=== PATIENT | male | born 2000 | race Caucasian/White ===

== ENCOUNTER 2018-04-03 10:51 | Emergency (ER) | payer MEDICAID, SELFPAY ==
[2018-04-03 10:53] VITALS: BP 127/61; PULSE 80; RESP 14; TEMP 36.8; O2SAT 97; BMI 29.2
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
== END 2018-04-03 11:32 | disposition home or self-care (01) ==
PROVIDERS: Emergency Provider Emergency Medicine; Family Provider Pediatrics; PCP Pediatrics
DX: S00.03XA Contusion of scalp, initial encounter (principal); Y04.2XXA Assault by strike against or bumped into by another person, initial encounter; Y93.9 Activity, unspecified; Y92.9 Unspecified place or not applicable; Y99.9 Unspecified external cause status; Z79.899 Other long term (current) drug therapy
CPT/HCPCS: 99283

== ENCOUNTER 2018-05-02 11:22 | Emergency (ER) | payer MEDICAID, SELFPAY ==
[2018-05-02] VITALS (9 sets, daily range): BP systolic 134–142; BP diastolic 60–68; PULSE 55–85; RESP 14–18; TEMP 36.9; O2SAT 97–99; BMI 30.2
--- NOTE | 2018-05-02 11:57 | ED.DCSUM_ITS ---
- ER Visit Summary Date of Service: 05/02/18 Chief Complaint: Suicidal thoughts History of Present Illness: The patient is a 17 M with history of bipolar disorder who is a resident at the [facility] presents with increasing suicidal thoughts. Patient states she has been very depressed lately. He states he has been having intrusive thoughts of self-harm. He states that he does have plan to cut himself. He actually did attempt to cut his right wrist today superficially. He states he was not sure if he was actually trying to harm himself or if it was just to relieve stress. He states he has been depressed before, but denies any prior suicide attempt. Physical Examination: Vital signs reviewed General: Well-nourished, well-developed Head: Normocephalic, atraumatic Eyes: Pupils equal and reactive, extraocular muscles intact Neck, supple, no lymphadenopathy Heart: Regular rate and rhythm Respiratory: No distress, clear bilaterally Abdomen: Soft, nontender, nondistended, no peritoneal signs Back: Nontender Extremities: Nontender, no edema, no cords, superficial abrasions on right arm. Normal pulses. Skin: Normal color no rash Neuro: Alert and oriented, no focal or lateralizing deficits Test Results: [] Emergency Department Course and Treatment: Patient was medically cleared. He will be evaluated by the crisis counselor. Disposition is pending completion of psychiatric evaluation. Treatment Plan: [] Disposition: Pending Impression: Depression This note was generated with [employer] dictation software. It may contain incorrect words, spelling, and punctuation that were not noted in review of the chart prior to signing ED Disposition - Plan for ED Patient: Chief Complaint: Suicidal Referrals: Boyd August MD [Primary Care Provider] -
[2018-05-02 12:11] LABS: Absolute Lymphocyte Count 1.94 X10^3/ul (0.83-4.51); Absolute Neutrophil Count 5.5 X10^3/uL (2.0-7.7); Basophil# 0.02 X10^3/uL; Basophil% 0.2 % (0-1); Eosinophil# 0.16 X10^3/uL; Hematocrit 46.5 % (40-54); Lymphocyte # 1.94 X10^3/ul (4.0); Lymphocyte % 23.7 % (19-41); Mean Corp Hgb Conc 32.3 g/gl (32-36); Mean Corpuscular Hgb 28.1 pg (27.0-32.0); Mean Corpuscular Volume 87.1 fL (80-94); Mean Platelet Vol. 9.1 fl (6.2-12.0); Monocyte# 0.55 X10^3/uL; Monocyte% 6.7 % (0-10); Neutrophil # 5.52 X10^3/uL (2.7-7.7); Neutrophil % 67.4 % (47-70); Platelet Count 254 K/mm3 (150-450); RBC Distribution Width CV 13.6 % (11.6-14.6); RBC Distribution Width SD 43.1 fl (35.1-43.9); Red Blood Count 5.34 M/mm3 (4.6-6.2); White Blood Count 8.2 K/mm3 (4.4-11.0)
[2018-05-02 12:12] LABS: POSITIVE COUNT NO; POSITIVE DIFFERENTIAL NO; POSITIVE MORPHOLOGY NO
[2018-05-02 12:15] LABS: Amphetamine Urine VISTA NEGATIVE (<1000 ng/mL); Barbiturate Urine VISTA NEGATIVE (< 200 ng/mL); Benzodiazepine Urine VISTA NEGATIVE (< 200 ng/mL); Cocaine Urine VISTA NEGATIVE (< 300 ng/mL); Ecstacy Urine VISTA NEGATIVE (< 500 ng/mL); Methadone Urine VISTA NEGATIVE (< 300 ng/mL); PCP Urine VISTA NEGATIVE (< 25 ng/mL); THC Urine VISTA NEGATIVE (< 50 ng/mL); Vista UDS pH Range 6
[2018-05-02 12:24] LABS: Anion Gap 5 (5-15); BUN 13 mg/dL (7-18); BUN/Creat Ratio 14.9 RATIO (10-20); Calcium,Total 9.2 mg/dL (8.5-10.1); Chloride 105 mmol/L (98-107); Creatinine, Serum 0.87 mg/dL (0.70-1.30); EST Glomerular Filtration Rate 119 mL/min (>60); Est Glom Filt Rate - Afr Amer 144 mL/min (>60); Estimated Creatinine Clearance 158.78 ml/min; Glucose 87 mg/dL (74-106); Potassium 3.8 mmol/L (3.5-5.1); Sodium Level 140 mmol/L (136-145)
[2018-05-02 12:26] LABS: Alcohol, Blood (Medical)-Serum < 3.0 mg/dL
--- NOTE | 2018-05-02 12:34 | ED.RN ---
counseling center made aware of pt in er. renal social worker at lunch, will be made aware of pt when they return
[2018-05-03] VITALS (15 sets, daily range): BP systolic 124–163; BP diastolic 61–87; PULSE 60–81; RESP 16–20; O2SAT 97–100
--- NOTE | 2018-05-03 11:20 | NURSING ---
PER HEIDI WITH [facility]; THEY ARE NOW TRYING TO GET THE PT ACCEPTED TO [facility]
--- NOTE | 2018-05-03 14:17 | ED.RN ---
CELSO GORDON WITH [facility]IS; HE IS WORKING ON HAVING PT ACCEPTED TO [facility]
--- NOTE | 2018-05-03 17:41 | EKGRS_ITS ---
Test Reason : MEDICAL CLEARANCE Blood Pressure : / mmHG Vent. Rate : 070 BPM Atrial Rate : 070 BPM P-R Int : 160 ms QRS Dur : 116 ms QT Int : 370 ms P-R-T Axes : 024 034 027 degrees QTc Int : 399 ms Normal sinus rhythm Normal ECG Confirmed by ROHAN LESLIE, RAMONA ([id number]), content editor DAIN GURROLA ([id number] on 05/10/2018 1:15:53 PM Referred By: Confirmed By:RAMONA MADRIGAL MD
[2018-05-03 18:22] LABS: AST(SGOT) 27 U/L (15-37); Alanine Aminotransfer ALT/SGPT 38 U/L (16-61); Albumin, Serum 4.5 g/dL (3.2-5.0); Alkaline Phosphatase 116 U/L (45-117); Bilirubin, Direct 0.11 mg/dL (0.00-0.30); Globulin 3.7 g/dL (2.2-4.2); Protein, Total 8.2 g/dL (6.4-8.2)
--- NOTE | 2018-05-03 18:43 | NURSING ---
FAXED LIVER PROFILE AND EKG TO [facility] PER [facility] REQUEST.
[2018-05-04] VITALS (15 sets, daily range): BP systolic 125–161; BP diastolic 69–75; PULSE 68–80; RESP 13–18; O2SAT 97–99
--- NOTE | 2018-05-04 06:57 | NURSING ---
CALLING [facility] FOR UPDATE
--- NOTE | 2018-05-04 07:53 | ED.RN ---
GERSON FROM [facility] CALLS. PT IS ACCEPTED AT [facility] BUT HAS MULTIPLE PEOPLE AHEAD OF HIM. UNSURE OF TIMELINE FOR TRANSFER. POSSIBLY PT WILL NEED TO REMAIN IN THE ED TIL SUNDAY
--- NOTE | 2018-05-04 09:34 | NURSING ---
PATIENT ON WAITING LIST AT [facility].
--- NOTE | 2018-05-04 15:35 | NURSING ---
PATIENT IN ROOM WATCHING TV WITH WORKER AT BEDSIDE. PT IS CURRENTLY COOPERATIVE.
--- NOTE | 2018-05-04 16:38 | ED.RN ---
patient washing up wound at bedside with worker nearby. pt requesting to take a shower.
--- NOTE | 2018-05-04 18:25 | ED.RN ---
patient is resting in room with no c/o. worker continues to stay at bedside. pt continues to wait for bed at [facility]
[2018-05-05] VITALS (22 sets, daily range): BP systolic 122–153; BP diastolic 61–76; PULSE 68–85; RESP 14–18; O2SAT 97–99
--- NOTE | 2018-05-05 10:08 | NURSING ---
ADAMA NIETO, CALLED AND GAVE AN UPDATE. IF THERE IS A PRIVATE ROOM OPEN UP AT [facility], HE WILL GET IT. IF NOT, HE WILL BE HERE TIL TOMORROW
[2018-05-05] MEDS: ARIPiprazole 5 MG Tablet 15 MG PO (10:15)
--- NOTE | 2018-05-05 14:28 | ED.RN ---
PT UP IN THE ROOM ACTING APPROPRIATELY LISTENING TO MUSIC. SITTER IN THE ROOM WITH PATIENT.
--- NOTE | 2018-05-05 15:58 | ED.RN ---
PT ORDERING SUPPER, WATCHING TV, STABLE, SSITTER IS WITH THE PT IN ROOM.
[2018-05-06] VITALS (21 sets, daily range): BP systolic 90–153; BP diastolic 47–91; PULSE 54–82; RESP 14–20; O2SAT 98–100
--- NOTE | 2018-05-06 10:10 | ED.RN ---
CALLED PHARMACY REGARDING ABIMICHAELY.
[2018-05-06] MEDS: ARIPiprazole 5 MG Tablet 15 MG PO (10:24)
--- NOTE | 2018-05-06 12:57 | ED.RN ---
GEORGE WITH [facility] THERE IS DEFINITELY NOT GOING TO BE ANY BEDS AVAILABLE TODAY.
--- NOTE | 2018-05-06 17:54 | ED.RN ---
JIHAN FROM [facility] CALLED TO UPDATE US ON A BED FOR PATIENT. HE IS FIRST ON THE LIST TOMORROW FOR A MALE BED.
[2018-05-07] VITALS (8 sets, daily range): BP systolic 155; BP diastolic 72–88; PULSE 74–87; RESP 13–16; O2SAT 96–100
--- NOTE | 2018-05-07 08:42 | ED.RN ---
pt given shower and teeth brushed
--- NOTE | 2018-05-07 09:35 | ED.RN ---
GERSON WITH [facility]; CALLING [facility] TO SEE WHERE WE ARE WITH THE PTS BED
[2018-05-07] MEDS: ARIPiprazole 5 MG Tablet 15 MG PO (09:44)
--- NOTE | 2018-05-07 11:00 | ED.RN ---
PER GERSON WITH CRISIS; SHE SPOKE WITH FABRICIO THE CNO AT [facility] AND FABRICIO STATED PT SHOULD HAVE A ROOM THIS AFTERNOON
--- NOTE | 2018-05-07 13:35 | ED.RN ---
c2 bed at [facility]
== END 2018-05-07 15:31 ==
PROVIDERS: Emergency Provider Emergency Medicine; Family Provider Pediatrics; PCP Pediatrics
DX: F31.9 Bipolar disorder, unspecified (principal); R45.851 Suicidal ideations; S40.811A Abrasion of right upper arm, initial encounter; X78.9XXA Intentional self-harm by unspecified sharp object, initial encounter; Y93.9 Activity, unspecified; Y92.9 Unspecified place or not applicable; Y99.9 Unspecified external cause status; Z79.899 Other long term (current) drug therapy; Z87.891 Personal history of nicotine dependence
CPT/HCPCS: 80048; 80076; 80307; 80320; 85025; 93005; 99284; G0480

== ENCOUNTER 2018-05-24 23:31 | Emergency (ER) | payer MEDICAID, SELFPAY ==
[2018-05-24 23:32] VITALS: BP 142/82; PULSE 67; RESP 15; TEMP 36.9; O2SAT 99; BMI 30.7
--- NOTE | 2018-05-24 23:57 | ED.VIS.GEN ---
History of Present Illness Informant: Patient Onset: Weeks - 2 Context: Gradual Onset Timing: Continuous Current Severity: Severe Maximum Severity: Severe Narrative: For the past 2 weeks or so, patient has been having fleeting thoughts of suicide, he states this has been contested by thoughts of cutting himself to relieve the stress and not killing himself. Tonight, he finally did this by cutting himself on the left forearm, again he states his intention was not to kill himself, but rather to relieve stress. He has not had a suicidal plan. He has been feeling this way because his ex-girlfriend killed herself in front of him about 5 years ago, and this is around the time of her birthday. He is at [facility]. He sees a counselor there periodically. When there was no use of him cutting his forearm about 3 hours ago, he was sent for further evaluation. Last tetanus is unknown. He denies any recent illnesses, other injuries, or other physical symptoms. No hallucinations or voices. Has been compliant with his medications. <Constantin Garcia - Last Filed: 05/24/18 23:57> <Mart Rowland - Last Filed: 05/25/18 04:18> Chief Complaint: Suicidal - Past Medical History (1) Bipolar disorder Status: Chronic (2) Mood disorder Status: Chronic <Constantin Garcia - Last Filed: 05/24/18 23:57> Past Medical History Smoking Status: Current some day smoker Alcohol: None Drugs: None <Constantin Garcia - Last Filed: 05/24/18 23:57> <Mart Rowland - Last Filed: 05/25/18 04:18> - Allergies and Home Meds Allergies/Adverse Reactions: Allergies No Known Allergies Allergy (Verified 05/25/18 01:50) Primary Care Physician: [facility] [GROUP OF PHYSICIANS] - Review of Systems All systems negative except as indicated Psych: Reports: Depression, Suicidal thoughts <Constantin Garcia - Last Filed: 05/24/18 23:57> Physical Exam Vital Signs/Narrative: Vital Signs Temp Pulse Resp BP Pulse Ox 05/24/18 23:32 98.4 F 67 15 142/82 H 99 Inital Vital Signs reviewed: Yes General: Well nourished, Well developed Head: Normocephalic, Atraumatic Eyes: Perrl, EOMI ENT: Moist mucous membranes, No rhinorrhea Neck: Supple, Nontender Cardiovascular: Regular rate, Regular rhythm, No murmurs Respiratory: No distress, CTA bilaterally, Chest nontender Abdomen: Soft, Nontender, Nondistended, Normal bowel sounds Back: Nontender, Normal Inspection Extremities: Nontender, No edema, - - Abrasions/lacerations left forearm. Full range of motion wrist and elbow and all other joints. Skin: Normal color, No rash, Trauma - Partial-thickness superficial abrasions ?3, parallel, left volar forearm, 1 of them is consistent with a laceration approximately 3 cm, but not in need of repair Neurological: Alert, Oriented x3, Cranial nerves II-XII grossly intact, Normal Strength, Normal Sensation Psychological: - - Anxious, standing, jittery, but very cooperative. Not intoxicated. <Constantin Garcia - Last Filed: 05/24/18 23:57> Vital Signs/Narrative: Vital Signs Resp 05/25/18 04:02 16 05/25/18 03:10 14 05/25/18 01:57 14 05/25/18 00:31 16 <Mart Rowland - Last Filed: 05/25/18 04:18> Diagnostic/Tx/Re-eval - Medical Decision Making Patient status will be updated. His lacerations/abrasions will be cleansed and dressed, I do not think they necessitate repair, they are very superficial. Labs along with drug screen and alcohol will be obtained, they will likely be unremarkable, and thus she will be medically cleared. Crisis will be called to evaluate further. Will be checked out to the oncoming emergency physician for final disposition. <Constantin Garcia - Last Filed: 05/24/18 23:57> - Medical Decision Making Patient was seen by [facility], he will be discharged back to his facility where he is closely monitored. At this time he is not suicidal does not want to hurt himself. The only reason he cut himself was to escape some of the pain. <Mart Rowland - Last Filed: 05/25/18 04:18> ED Disposition <Constantin Garcia - Last Filed: 05/24/18 23:57> <Mart Rowland - Last Filed: 05/25/18 04:18> - Plan for ED Patient: Chief Complaint: Suicidal Diagnosis: Suicidal thoughts Referrals: [facility] [GROUP OF PHYSICIANS] -
--- NOTE | 2018-05-25 00:02 | ED.DCSUM_ITS ---
History of Present Illness Informant: Patient Onset: Weeks - 2 Context: Gradual Onset Timing: Continuous Current Severity: Severe Maximum Severity: Severe Narrative: For the past 2 weeks or so, patient has been having fleeting thoughts of suicide , he states this has been contested by thoughts of cutting himself to relieve the stress and not killing himself. Tonight, he finally did this by cutting himself on the left forearm, again he states his intention was not to kill himself, but rather to relieve stress. He has not had a suicidal plan. He has been feeling this way because his ex-girlfriend killed herself in front of him about 5 years ago, and this is around the time of her birthday. He is at [employer]. He sees a counselor there periodically. When there was no use of him cutting his forearm about 3 hours ago, he was sent for further evaluation. Last tetanus is unknown. He denies any recent illnesses, other injuries, or other physical symptoms. No hallucinations or voices. Has been compliant with his medications. <Constantin Garcia - Last Filed: 05/24/18 23:57> <Mart Rowland - Last Filed: 05/25/18 04:18> Chief Complaint: Suicidal - Past Medical History (1) Bipolar disorder Status: Chronic (2) Mood disorder Status: Chronic <Constantin Garcia - Last Filed: 05/24/18 23:57> Past Medical History Smoking Status: Current some day smoker Alcohol: None Drugs: None <Constantin Garcia - Last Filed: 05/24/18 23:57> <Mart Rowland - Last Filed: 05/25/18 04:18> - Allergies and Home Meds Allergies/Adverse Reactions: Allergies No Known Allergies Allergy (Verified 05/25/18 01:50) Primary Care Physician: [facility] [GROUP [facility] PHYSICIANS] - Review of Systems All systems negative except as indicated Psych: Reports: Depression, Suicidal thoughts <Constantin Garcia - Last Filed: 05/24/18 23:57> Physical Exam Vital Signs/Narrative: Vital Signs Temp Pulse Resp BP Pulse Ox 05/24/18 23:32 98.4 F 67 15 142/82 H 99 Inital Vital Signs reviewed: Yes General: Well nourished, Well developed Head: Normocephalic, Atraumatic Eyes: Perrl, EOMI ENT: Moist mucous membranes, No rhinorrhea Neck: Supple, Nontender Cardiovascular: Regular rate, Regular rhythm, No murmurs Respiratory: No distress, CTA bilaterally, Chest nontender Abdomen: Soft, Nontender, Nondistended, Normal bowel sounds Back: Nontender, Normal Inspection Extremities: Nontender, No edema, - - Abrasions/lacerations left forearm. Full range of motion wrist and elbow and all other joints. Skin: Normal color, No rash, Trauma - Partial-thickness superficial abrasions ?3 , parallel, left volar forearm, 1 of them is consistent with a laceration approximately 3 cm, but not in need of repair Neurological: Alert, Oriented x3, Cranial nerves II-XII grossly intact, Normal Strength, Normal Sensation Psychological: - - Anxious, standing, jittery, but very cooperative. Not intoxicated. <Constantin Garcia - Last Filed: 05/24/18 23:57> Vital Signs/Narrative: Vital Signs Resp 05/25/18 04:02 16 05/25/18 03:10 14 05/25/18 01:57 14 05/25/18 00:31 16 <Mart Rowland - Last Filed: 05/25/18 04:18> Diagnostic/Tx/Re-eval - Medical Decision Making Patient status will be updated. His lacerations/abrasions will be cleansed and dressed, I do not think they necessitate repair, they are very superficial. Labs along with drug screen and alcohol will be obtained, they will likely be unremarkable, and thus she will be medically cleared. Crisis will be called to evaluate further. Will be checked out to the oncoming emergency physician for final disposition. <Cnostantin Garcia - Last Filed: 05/24/18 23:57> - Medical Decision Making Patient was seen by [facility], he will be discharged back to his facility where he is closely monitored. At this time he is not suicidal does not want to hurt himself. The only reason he cut himself was to escape some of the pain. <Mart Rowland - Last Filed: 05/25/18 04:18> ED Disposition <Constantin Garcia - Last Filed: 05/24/18 23:57> <Mart Rowland - Last Filed: 05/25/18 04:18> - Plan for ED Patient: Chief Complaint: Suicidal Diagnosis: Suicidal thoughts Referrals: [facility] [GROUP OF PHYSICIANS] -
[2018-05-25 00:16] LABS: Amphetamine Urine VISTA NEGATIVE (<1000 ng/mL); Barbiturate Urine VISTA NEGATIVE (< 200 ng/mL); Benzodiazepine Urine VISTA NEGATIVE (< 200 ng/mL); Cocaine Urine VISTA NEGATIVE (< 300 ng/mL); Ecstacy Urine VISTA NEGATIVE (< 500 ng/mL); Methadone Urine VISTA NEGATIVE (< 300 ng/mL); PCP Urine VISTA NEGATIVE (< 25 ng/mL); THC Urine VISTA NEGATIVE (< 50 ng/mL); Vista UDS pH Range 6
[2018-05-25 00:30] LABS: Absolute Neutrophil Count 5.3 X10^3/uL (2.0-7.7); Basophil# 0.02 X10^3/uL; Basophil% 0.2 % (0-1); Eosinophil# 0.19 X10^3/uL; Eosinophils% 2.1 % (0-5); Hematocrit 45.7 % (40-54); Hemoglobin 14.9 g/dl (13.0-16.5); Lymphocyte % 33.9 % (19-41); Mean Corp Hgb Conc 32.6 g/gl (32-36); Mean Corpuscular Hgb 28.1 pg (27.0-32.0); Mean Corpuscular Volume 86.2 fL (80-94); Mean Platelet Vol. 9.6 fl (6.2-12.0); Monocyte# 0.58 X10^3/uL; Monocyte% 6.3 % (0-10); Neutrophil # 5.25 X10^3/uL (2.7-7.7); Neutrophil % 57.4 % (47-70); Platelet Count 284 K/mm3 (150-450); RBC Distribution Width CV 13.2 % (11.6-14.6); RBC Distribution Width SD 41.6 fl (35.1-43.9); White Blood Count 9.2 K/mm3 (4.4-11.0)
[2018-05-25 00:31] VITALS: RESP 16
[2018-05-25 00:31] LABS: POSITIVE COUNT NO; POSITIVE DIFFERENTIAL NO; POSITIVE MORPHOLOGY NO
[2018-05-25 00:35] LABS: Anion Gap 6 (5-15); BUN 13 mg/dL (7-18); BUN/Creat Ratio 13.6 RATIO (10-20); Calcium,Total 9.2 mg/dL (8.5-10.1); Chloride 106 mmol/L (98-107); Creatinine, Serum 0.95 mg/dL (0.70-1.30); EST Glomerular Filtration Rate 107 mL/min (>60); Est Glom Filt Rate - Afr Amer 130 mL/min (>60); Estimated Creatinine Clearance 145.41 ml/min; Glucose 124 mg/dL (74-106); Potassium 3.8 mmol/L (3.5-5.1); Sodium Level 141 mmol/L (136-145)
[2018-05-25 01:57] VITALS: RESP 14
[2018-05-25 03:10] VITALS: RESP 14
[2018-05-25 04:02] VITALS: RESP 16
[2018-05-25 04:18] VITALS: BP 139/64; PULSE 65; RESP 16; O2SAT 97
--- NOTE | 2018-05-25 04:18 | ED.DEP ---
ED Disposition - Plan for ED Patient: Disposition: Home or Assisted Living Chief Complaint: Suicidal Diagnosis: Suicidal thoughts Referrals: [facility] [GROUP OF PHYSICIANS] - 3-5 Days
== END 2018-05-25 04:22 | disposition home or self-care (01) ==
PROVIDERS: Emergency Provider Emergency Medicine; Family Provider Pediatrics; PCP Pediatrics
DX: F31.9 Bipolar disorder, unspecified (principal); R45.851 Suicidal ideations; S51.812A Laceration without foreign body of left forearm, initial encounter; X78.9XXA Intentional self-harm by unspecified sharp object, initial encounter; Y93.9 Activity, unspecified; Y92.9 Unspecified place or not applicable; Y99.9 Unspecified external cause status; F17.200 Nicotine dependence, unspecified, uncomplicated; Z79.899 Other long term (current) drug therapy
CPT/HCPCS: 80048; 80307; 80320; 85025; 99284; G0480